=== PATIENT | female | born 1985 | race Caucasian/White ===

== ENCOUNTER → 2020-09-12 00:27 | Outpatient (CLI) | payer BC, SELFPAY ==
[2020-09-12 20:36] LABS: SARS-CoV-2 RNA PCR Negative
== END ==
PROVIDERS: Visit Provider Internal Medicine Gastroenterology
DX: Z01.812 Encounter for preprocedural laboratory examination (principal); Z20.822 Contact with and (suspected) exposure to COVID-19
CPT/HCPCS: C9803; U0003; U0005

== ENCOUNTER 2020-09-15 00:21 | Day surgery (SDC) | payer BC, SELFPAY ==
[2020-09-04 13:07] VITALS: BMI 49.1
[2020-09-15 10:42] VITALS: BP 128/88; PULSE 77; RESP 18; TEMP 36.1; O2SAT 98
[2020-09-15] MEDS: LACTATED RINGERS 1,000 ML 150 ML IV CONT (10:52)
--- NOTE | 2020-09-15 11:24 | WPDANESEPPF ---
Anes - Initial Pre Proc Eval Procedure: Operation Date: 09/15/20 12:00 Proposed Procedures p Esophagogastroduodenoscopy & Colonoscopy - Wolf Chester MD Date/Time: 09/15/20 11:24 Surgeon: Wolf Chester MD Pre Op Diagnosis: Nausea, Blood in Stool Patient Data Age: 35 Gender: F Height: 1.55 m Weight: 112.1 kg Last Vital Signs Temp 97 F L 09/15/20 10:42 Pulse 77 09/15/20 10:42 Resp 18 09/15/20 10:42 BP 128/88 09/15/20 10:42 Pulse Ox 98 09/15/20 10:42 Allergies Allergy/AdvReac Type Severity Reaction Status Date / Time ketorolac [From Toradol] Allergy Hives Verified 09/15/20 10:40 Home Medications Medication Instructions Recorded Confirmed Type dicyclomine 10 mg capsule 10 mg PO TID PRN #90 cap 08/14/20 09/15/20 Rx ondansetron HCl 4 mg tablet 4 mg PO Q8H PRN #90 tablet 08/14/20 09/15/20 Rx Patient hx anesthesia problems: none Family hx anesthesia problems: none PMFSH Past Medical History Medical History (Updated 08/14/20 @ 13:33 by Wolf Chester MD) Acute arthritis Blood in stool Nausea Obesity, morbid, BMI 40.0-49.9 Family History Family History (Updated 08/14/20 @ 13:19 by Azul Moreno MA) Father Diabetes mellitus Mother Diabetes mellitus Hypertension Depression Cerebrovascular accident Heart abnormality Thyroid condition Social History Social History (Updated 08/14/20 @ 13:21 by Azul Moreno MA) Smoking status: Never smoker Alcohol intake: never Substance use: never Living arrangements: with family Gender identity (if verbalized by the patient): Female Spiritual care concerns: No Agree to blood products: Yes Anes - Eval Final PreProcedure Day of Procedure 09/15/20 11:24 Patient weight: morbidly obese Heart: regular rate and rhythm Lungs: clear to auscultation Airway: Mallampati scale class II Neurological: alert and oriented Last oral intake: >/= 8 hours ASA classification: III Emergent: no Anesthetic plan: proceed Anesthesia type and monitoring: general GIVS and standard monitoring Informed Consent: The patient's anesthetic plan and its attendant risks and benefits were discussed with the patient/family/POA. Questions were solicited and answers provided to the satisfaction of the patient/family/POA.
--- NOTE | 2020-09-15 11:27 | PM.HPGS ---
History of Present Illness History of Present Illness Consent: Risks, benefits, and alternatives have been discussed and questions answered. Patient agrees to proceed with procedure. Chief complaint: Nausea, Blood in Stool Narrative: Nereida Rae is a 35 year old female with intermittent nausea, abdominal pain and blood stools, never had scopes. CT scan without acute findings. Review of Systems Constitutional: Constitutional: Denies headache(s) and Denies weakness Eyes: Eyes: Denies blurry vision ENT: Reports Normal hearing present, Denies headache(s) and Denies neck pain Cardiovascular: Cardiovascular: Denies chest pain and Denies dyspnea Respiratory: Respiratory: Denies dyspnea Gastrointestinal: Gastrointestinal: Reports no additional gastrointestinal complaints Genitourinary: Genitourinary: Denies dysuria Musculoskeletal: Musculoskeletal: Denies neck pain Integumentary/Breasts: Skin/Breast: Denies dry skin Neurologic: Reports Normal hearing present, Denies headache(s) and Denies weakness Psychiatric: Psychiatric: Denies anxiety Endocrine: Endocrine: Denies change in body appearance Hematologic/Lymphatic: Hematologic/Lymphatic: Denies easy bleeding Allergic/Immunologic: Allergic/Immunologic: Denies urticaria PMFSH Past Medical History Medical History (Updated 08/14/20 @ 13:33 by Wolf Chester MD) Acute arthritis Blood in stool Nausea Obesity, morbid, BMI 40.0-49.9 Family History Family History (Updated 08/14/20 @ 13:19 by Azul Moreno MA) Father Diabetes mellitus Mother Diabetes mellitus Hypertension Depression Cerebrovascular accident Heart abnormality Thyroid condition Social History Social History (Updated 08/14/20 @ 13:21 by Azul Moreno MA) Smoking status: Never smoker Alcohol intake: never Substance use: never Living arrangements: with family Gender identity (if verbalized by the patient): Female Spiritual care concerns: No Agree to blood products: Yes Meds Home Medications and Allergies Home Medications Medication Instructions Recorded Confirmed Type dicyclomine 10 mg capsule 10 mg PO TID PRN #90 cap 08/14/20 09/15/20 Rx ondansetron HCl 4 mg tablet 4 mg PO Q8H PRN #90 tablet 08/14/20 09/15/20 Rx Allergies Allergy/AdvReac Type Severity Reaction Status Date / Time ketorolac [From Toradol] Allergy Hives Verified 09/15/20 10:40 Vital Signs Vital Signs - 24 hr 07/30/21 10:42 Temperature 97 F L Pulse Rate 77 Respiratory Rate 18 Blood Pressure 128/88 Pulse Oximetry 98 Exam Const: General: comfortable and no acute distress HENMT: General nose exam: Normal nares present Eyes: General: appearance normal, both eyes and all related structures Neck: Neck: no JVD Resp: Auscultation: clear to auscultation bilaterally Cardio: Rate: regular rate Rhythm: regular rhythm GI: Inspection: non-distended GI Palp: Yes Soft to palpation Skin: General skin exam: normal color Neuro: General: gait normal Speech: normal speech Extrem: General: normal to inspection Psych: Mental Status: mental status grossly normal Assessment and Plan Assessment and plan (1) Blood in stool: Code(s): K92.1 - Melena Status: Acute Assessment and Plan: colonoscopy (2) Nausea: Code(s): R11.0 - Nausea Status: Acute Assessment and Plan: egd with bx
[2020-09-15 11:57] VITALS: BP 103/73; PULSE 91; RESP 26; O2SAT 95
[2020-09-15 12:07] VITALS: BP 110/78; PULSE 80; RESP 18; O2SAT 97
[2020-09-15 12:17] VITALS: BP 103/74; PULSE 63; RESP 16; O2SAT 98
== END 2020-09-15 12:20 | disposition home or self-care (01) ==
PROVIDERS: Visit Provider Internal Medicine Gastroenterology
PROC: 0DJ08ZZ Inspection of Upper Intestinal Tract, Via Natural or Artificial Opening Endoscopic (ICD-10-PCS; CPT 43235; principal; 2020-09-15 12:00)
DX: R11.0 Nausea (principal); K22.70 Barrett's esophagus without dysplasia; K44.9 Diaphragmatic hernia without obstruction or gangrene; K92.1 Melena; K64.8 Other hemorrhoids; M19.90 Unspecified osteoarthritis, unspecified site; E66.01 Morbid (severe) obesity due to excess calories; Z68.42 Body mass index [BMI] 45.0-49.9, adult; K29.50 Unspecified chronic gastritis without bleeding
CPT/HCPCS: 43239; 45378; 88305; 88312; J2001; J2704; J7120